=== PATIENT | male | born 1945 | race Caucasian/White ===

== ENCOUNTER 2018-03-05 05:47 | Inpatient (IN) ==
[2018-03-05] MEDS ORDERED: ASPIRIN 325 MG TABLET PO ONE (05:57)
[2018-03-05] MEDS ORDERED: MAGNESIUM SULF RIDER 2 GM in PREMIX 1 EACH IV PRN (05:57)
[2018-03-05] MEDS ORDERED: DIAZEPAM 5 MG TABLET PO ONE (05:57)
[2018-03-05] MEDS ORDERED: diphenhydrAMINE CAP 25 MG CAPSULE PO ONE (05:57)
[2018-03-05] MEDS ORDERED: POTASSIUM CHLORIDE RIDER 10 MEQ in PREMIX 1 EACH IV PRN (05:57)
[2018-03-05] MEDS ORDERED: DEXTROSE 5% NACL 0.45% 1,000 ML IV SCH (06:00)
[2018-03-05] MEDS ORDERED: DIAZEPAM 5 MG TABLET ONE (06:44)
[2018-03-05] MEDS ORDERED: ASPIRIN 325 MG TABLET ONE (06:45)
[2018-03-05] MEDS ORDERED: diphenhydrAMINE CAP 25 MG CAPSULE ONE (06:45)
[2018-03-05] MEDS ORDERED: HEPARIN/NACL 0.9% 2 UNITS/ML 1,000 ML IV ONE (06:47)
[2018-03-05] MEDS ORDERED: LIDOCAINE 1%/EPI INJ 20 ML VIAL ONE (06:47)
[2018-03-05] MEDS ORDERED: MIDAZOLAM 2 MG/2 ML VIAL ONE (07:18)
[2018-03-05] MEDS ORDERED: NITROGLYCERIN DRIP 50 MG/250 ML BOTTLE IV ONE (07:18)
[2018-03-05] MEDS ORDERED: VERAPAMIL 5 MG/2 ML VIAL ONE (07:19)
[2018-03-05] MEDS ORDERED: fentaNYL 100 MCG/2 ML VIAL ONE (07:19)
[2018-03-05] MEDS ORDERED: ENOXAPARIN 60 MG/0.6 ML SYRINGE ONE (07:36)
[2018-03-05] MEDS ORDERED: ACETAMINOPHEN/diphenhydrAMINE 500-25 MG TABLET PO PRN (08:41)
[2018-03-05] MEDS ORDERED: fentaNYL 100 MCG/2 ML VIAL IV PRN (08:42)
[2018-03-05] MEDS: PANTOPRAZOLE 40 MG TABLET PO SCH (09:29)
[2018-03-05] MEDS: METOPROLOL TARTRATE 25 MG TABLET PO SCH ×2 (09:30→21:32)
[2018-03-05] MEDS: ASPIRIN EC 81 MG TABLET PO SCH ×2 (12:35→21:34)
[2018-03-05] MEDS ORDERED: NON-FORMULARY MEDICATION (Omeprazole [Omeprazole] 20 MG) PO SCH (19:00)
[2018-03-05] MEDS ORDERED: PRAVASTATIN 40 MG TABLET PO SCH (21:00)
[2018-03-05] MEDS: LOSARTAN 25 MG TABLET PO SCH (21:33)
[2018-03-06] MEDS: ASPIRIN EC 81 MG TABLET PO SCH ×2 (08:43→22:00)
[2018-03-06] MEDS: METOPROLOL TARTRATE 25 MG TABLET PO SCH ×2 (08:44→22:02)
[2018-03-06] MEDS: PANTOPRAZOLE 40 MG TABLET PO SCH (10:32)
[2018-03-06] MEDS: LEVOTHYROXINE 125 MCG TABLET PO SCH (10:32)
[2018-03-06] MEDS ORDERED: GLUCAGON 1 MG VIAL IM PRN ×2 (10:36→15:54)
[2018-03-06] MEDS ORDERED: DEXTROSE 50% 25 GM/50 ML VIAL IV PRN (10:36)
[2018-03-06 11:16] LABS: Basophils # 0.1 10*3/uL (0.0-0.2); Basophils % 0.8 % (0.0-0.8); Eosinophils # 0.3 10*3/uL (0.0-0.87); Eosinophils % 3.5 % (0.00-10.9); Hematocrit 43.9 VOL% (42.0-52.0); Immature Granulocytes % 0.6 %; Immature Granulocytes Absolute 0.05 #; Lymphocytes # 2.3 10*3/uL (1.4-4.0); Lymphocytes % 26.4 % (21.2-54.2); Mean Corpuscular HGB Conc 34.2 GM/DL (32-36); Mean Corpuscular Hemoglobin 32 PG (27-34); Mean Corpuscular Volume 92.2 FL (87-102); Mean Platelet Volume 10.8 FL (9.6-12.0); Monocytes # 0.8 10*3/uL (0.11-0.8); Monocytes % 9.3 % (1.7-12.7); Neutrophils # 5.1 10*3/uL (1.4-7.4); Neutrophils % 59.4 % (38.7-73.9); Platelet Count 228 T/CUMM (130-400); Red Blood Count 4.76 MC/CUMM (3.8-5.5); Red Cell Distribution Width 12.4 % (9.3-17.3); White Blood Count 8.6 T/CUMM (4-12)
[2018-03-06 11:46] LABS: Albumin 3.6 G/DL (3.4-5.0); Bilirubin,Total 0.8 MG/DL (0.2-1.0); Calcium 8.9 MG/DL (8.5-10.1); Potassium 4.2 MMOL/L (3.5-5.1); Total Protein 7.5 G/DL (6.4-8.3)
[2018-03-06] MEDS: SODIUM CHLORIDE 0.9% 1,000 ML IV SCH (12:42)
[2018-03-06] MEDS: CHLORHEXIDINE 0.12% ORAL RINSE 60 ML BOTTLE SWISH/SPIT SCH ×2 (12:57→22:14)
[2018-03-06 14:30] LABS: ABG Base Excess -0.5 MMOL/L (-2.5-2.5); ABG Oxygen Saturation 95.3 % (95-100); ABG PCO2 38.3 MM HG (35-48); ABG PH 7.404 (7.35-7.45); ABG PO2 77.9 MM HG (80-95); ABG TCO2 20.4 MMOL/L (23-27)
[2018-03-06] MEDS ORDERED: diphenhydrAMINE CAP 25 MG CAPSULE PO PRN (15:52)
[2018-03-06] MEDS ORDERED: DEXTROSE 50% 25 GM/50 ML SYRINGE IV PRN (15:54)
[2018-03-06] MEDS: CHLORHEXIDINE 4% SOLN 118 ML BOTTLE TOP SCH ×2 (16:01→22:15)
[2018-03-06] MEDS: INSULIN REGULAR 100 UNIT/ML SUBCUT SCH ×2 (16:36→22:14)
[2018-03-06] MEDS ORDERED: EZETIMIBE 10 MG TABLET PO SCH (21:00)
[2018-03-06] MEDS: LOSARTAN 25 MG TABLET PO SCH (22:00)
[2018-03-07] MEDS ORDERED: PAPAVERINE 60 MG/2 ML VIAL ONE (04:46)
[2018-03-07] MEDS ORDERED: VANCOMYCIN 1,000 MG VIAL ONE (04:46)
[2018-03-07 05:22] LABS: Basophils # 0.1 10*3/uL (0.0-0.2); Basophils % 0.7 % (0.0-0.8); Eosinophils # 0.4 10*3/uL (0.0-0.87); Eosinophils % 4.2 % (0.00-10.9); Hemoglobin 14.8 GM/DL (14.0-18.0); Immature Granulocytes % 0.6 %; Immature Granulocytes Absolute 0.06 #; Lymphocytes # 2.9 10*3/uL (1.4-4.0); Lymphocytes % 29.1 % (21.2-54.2); Mean Corpuscular HGB Conc 33.6 GM/DL (32-36); Mean Corpuscular Hemoglobin 31 PG (27-34); Mean Corpuscular Volume 92.2 FL (87-102); Mean Platelet Volume 10.8 FL (9.6-12.0); Monocytes # 0.9 10*3/uL (0.11-0.8); Monocytes % 9.3 % (1.7-12.7); Neutrophils # 5.6 10*3/uL (1.4-7.4); Neutrophils % 56.1 % (38.7-73.9); Platelet Count 229 T/CUMM (130-400); Red Blood Count 4.77 MC/CUMM (3.8-5.5); Red Cell Distribution Width 12.4 % (9.3-17.3)
[2018-03-07] MEDS ORDERED: MIDAZOLAM 10 MG/2 ML VIAL ONE ×2 (05:59)
[2018-03-07] MEDS ORDERED: SUFentanil 250 MCG/5 ML AMP ONE (05:59)
[2018-03-07] MEDS ORDERED: DIAZEPAM 5 MG TABLET PO SCH (06:00)
[2018-03-07 06:01] LABS: Calcium 8.8 MG/DL (8.5-10.1); Osmolality,Calculated 281.5 MOS/KG (273-304); Potassium 4.1 MMOL/L (3.5-5.1)
[2018-03-07] MEDS: LEVOTHYROXINE 125 MCG TABLET PO SCH (06:36)
[2018-03-07] MEDS ORDERED: HEPARIN/NACL 0.9% 2 UNITS/ML 500 ML IV ONE (06:39)
[2018-03-07] MEDS ORDERED: PHENYLEPHRINE 10 MG/1 ML VIAL IV ONE ×2 (06:39→15:39)
[2018-03-07] MEDS ORDERED: NITROGLYCERIN DRIP 50 MG/250 ML BOTTLE IV ONE ×2 (06:39→15:39)
[2018-03-07] MEDS ORDERED: CEFUROXIME INJ 1,500 MG in SYRINGE 1 EACH IV ONE (09:00)
[2018-03-07] MEDS ORDERED: DIAZEPAM 5 MG TABLET PO ONE (09:51)
[2018-03-07] MEDS: INSULIN REGULAR 100 UNIT/ML SUBCUT SCH ×2 (10:00→14:48)
[2018-03-07] MEDS: CHLORHEXIDINE 4% SOLN 118 ML BOTTLE TOP SCH (10:12)
[2018-03-07] MEDS: CHLORHEXIDINE 0.12% ORAL RINSE 60 ML BOTTLE SWISH/SPIT SCH (10:12)
[2018-03-07] MEDS: ASPIRIN EC 81 MG TABLET PO SCH (10:12)
[2018-03-07] MEDS: SODIUM CHLORIDE 0.9% 1,000 ML IV SCH ×2 (10:13→14:48)
[2018-03-07] MEDS: PANTOPRAZOLE 40 MG TABLET PO SCH (10:13)
[2018-03-07] MEDS: METOPROLOL TARTRATE 25 MG TABLET PO SCH (10:13)
[2018-03-07 12:02] LABS: ABG Base Excess -0.4 MMOL/L (-2.5-2.5); ABG HCO3 24.1 MMOL/L (20-26); ABG Oxygen Saturation 99.8 % (95-100); ABG PCO2 42.6 MM HG (35-48); ABG PH 7.376 (7.35-7.45); ABG TCO2 21.3 MMOL/L (23-27); Glucose Heart Surgery 114 MG/DL (74-106); Hematocrit Heart Surgery 45.6 PERCENT (42-52); Hemoglobin Heart Surgery 14.9 G/DL (14.0-18.0); Ionized Calcium Arterial 1.17 MMOL/L (1.21-1.46); PCO2 Patient Temp Arterial 42.6 MMHG; PH Patient Temp Arterial 7.376; Patient Temperature 37 CELCIUS; Potassium Heart/CVR 4.1 MMOL/L (3.5-5.1); Sodium Heart/CVR 138 MMOL/L (135-145)
[2018-03-07 12:52] LABS: Apearance,Urine CLEAR (Clear); Bilirubin,Urine Negative (Negative); Blood, Urine Moderate mg/dL (Negative); Glucose,Urine (UA) Negative (Negative); Ketones,Urine Negative (Negative); Nitrite,Urine Negative (Negative); Protein,Urine Negative; RBC,Urine 20 /HPF (0-4); Urine Color Yellow (Yellow); Urine Specific Gravity 1.014 (1.001-1.035); Urine Urobilinogen < 2.0 EU/DL (0.2-1.0); WBC,Urine <1 /HPF (0-6)
[2018-03-07 13:31] LABS: Hematocrit Heart Surgery 28.2 PERCENT (42-52); Hemoglobin Heart Surgery 9.1 G/DL (14.0-18.0); PCO2 Patient Temp Venous 34.3 MM HG; PH Patient Temp Venous 7.442; PO2 Patient Temp Venous 36.9 MM HG; VBG Base Excess -0.3 MEQ/L (0-4); VBG HCO3 23.9 MEQ/L (24-28); VBG Oxygen Saturation 78.8 %; VBG PCO2 37.8 MMHG (41-51); VBG PH 7.413; VBG PO2 42.4 MMHG (17-40)
[2018-03-07] MEDS ORDERED: ALBUMIN 5% 12.5 GM/250 ML VIAL IV ONE ×2 (13:38→18:11)
[2018-03-07] MEDS ORDERED: SODIUM BICARBONATE 50 MEQ/50 ML SYRINGE IV ONE ×2 (13:38→14:48)
[2018-03-07] MEDS ORDERED: PHENYLEPHRINE DRIP 40 MG/250 ML PREMIX IV ONE (13:38)
[2018-03-07] MEDS ORDERED: CALCIUM CHLORIDE 1,000 MG/10 ML SYRINGE IV ONE (13:38)
[2018-03-07] MEDS ORDERED: POTASSIUM CHLORIDE RIDER 100 ML IV ONE (13:39)
[2018-03-07 13:58] LABS: Hematocrit Heart Surgery 30.5 PERCENT (42-52); Hemoglobin Heart Surgery 9.9 G/DL (14.0-18.0); PCO2 Patient Temp Venous 30.6 MM HG; PH Patient Temp Venous 7.456; PO2 Patient Temp Venous 34.6 MM HG; VBG Base Excess -1.6 MEQ/L (0-4); VBG HCO3 22.7 MEQ/L (24-28); VBG Oxygen Saturation 75.4 %; VBG PCO2 33.7 MMHG (41-51); VBG PH 7.427; VBG PO2 39.8 MMHG (17-40)
[2018-03-07 13:59] LABS: Potassium Heart/CVR 6.1 MMOL/L (3.5-5.1)
[2018-03-07] MEDS ORDERED: DEXTROSE 5% KCL 20 MEQ 20 MEQ/1,000 ML BAG IV ONE (14:48)
[2018-03-07] MEDS ORDERED: PROTAMINE SULFATE 250 MG/25 ML VIAL IV ONE (14:48)
[2018-03-07] MEDS ORDERED: ALBUMIN 25% 25 GM/100 ML VIAL IV ONE (14:48)
[2018-03-07] MEDS ORDERED: HEPARIN 10,000 UNIT/10 ML VIAL ONE (14:48)
[2018-03-07] MEDS ORDERED: MANNITOL 12.5 GM/50 ML VIAL IV ONE (14:48)
[2018-03-07] MEDS ORDERED: MAGNESIUM SULFATE 10 GM/20 ML VIAL IV ONE (14:48)
[2018-03-07] MEDS ORDERED: methylPREDNISolone SOD SUC 1,000 MG/8 ML VIAL ONE (14:48)
[2018-03-07] MEDS ORDERED: FUROSEMIDE 20 MG/2 ML VIAL ONE (14:49)
[2018-03-07 14:54] LABS: ABG Base Excess -2.9 MMOL/L (-2.5-2.5); ABG Oxygen Saturation 99.3 % (95-100); ABG PCO2 38.1 MM HG (35-48); ABG TCO2 19.7 MMOL/L (23-27); Glucose Heart Surgery 263 MG/DL (74-106); Hemoglobin Heart Surgery 11.3 G/DL (14.0-18.0); Ionized Calcium Arterial 1.21 MMOL/L (1.21-1.46); PCO2 Patient Temp Arterial 38.1 MMHG; Patient Temperature 37 CELCIUS; Potassium Heart/CVR 4.1 MMOL/L (3.5-5.1); Sodium Heart/CVR 133 MMOL/L (135-145)
[2018-03-07] MEDS ORDERED: CALCIUM CHLORIDE 1,000 MG/10 ML VIAL IV ONE (15:38)
[2018-03-07] MEDS ORDERED: SEVOFLURANE 1 UNIT/15 MINUTE INH ONE (15:38)
[2018-03-07] MEDS ORDERED: LACTATED RINGERS 2,000 ML IV ONE (15:39)
[2018-03-07] MEDS ORDERED: SODIUM CHLORIDE 0.9% 1,000 ML IV ONE (15:39)
[2018-03-07] MEDS ORDERED: AMINOCAPROIC ACID 5,000 MG/20 ML VIAL IV ONE (15:39)
[2018-03-07] MEDS ORDERED: SODIUM CHLORIDE 0.9% 500 ML IV ONE (15:39)
[2018-03-07] MEDS ORDERED: VECURONIUM 10 MG VIAL IV ONE (15:39)
[2018-03-07] MEDS ORDERED: PHENYLEPHRINE 1 MG/10 ML SYRINGE IV ONE (15:39)
[2018-03-07] MEDS ORDERED: ETOMIDATE 40 MG/20 ML VIAL IV ONE (15:39)
[2018-03-07] MEDS ORDERED: POTASSIUM CHLORIDE RIDER 10 MEQ in PREMIX 1 EACH IV PRN (15:42)
[2018-03-07] MEDS ORDERED: MORPHINE 4 MG/1 ML VIAL IV PRN (15:42)
[2018-03-07] MEDS ORDERED: MIDAZOLAM 2 MG/2 ML VIAL IV PRN (15:42)
[2018-03-07] MEDS ORDERED: MAGNESIUM SULF RIDER 4 GM in PREMIX 1 EACH IV PRN (15:42)
[2018-03-07] MEDS ORDERED: NITROPRUSSIDE 100 MG in DEXTROSE 5% 250 ML IV PRN (15:42)
[2018-03-07] MEDS ORDERED: CALCIUM CHLORIDE 1,000 MG/10 ML SYRINGE IV PRN (15:42)
[2018-03-07] MEDS ORDERED: MIDAZOLAM 10 MG/2 ML VIAL IV PRN (15:42)
[2018-03-07] MEDS ORDERED: MAGNESIUM SULF RIDER 2 GM in PREMIX 1 EACH IV PRN (15:42)
[2018-03-07] MEDS ORDERED: ONDANSETRON 4 MG/2 ML VIAL IV PRN (15:42)
[2018-03-07] MEDS ORDERED: INSULIN REGULAR 100 UNIT/ML IV PRN (15:42)
[2018-03-07] MEDS ORDERED: VECURONIUM 10 MG VIAL IV PRN ×2 (15:42)
[2018-03-07] MEDS ORDERED: MORPHINE 10 MG/1 ML VIAL IV PRN (15:42)
[2018-03-07] MEDS ORDERED: DEXTROSE 50% 25 GM/50 ML SYRINGE IV PRN ×2 (15:42)
[2018-03-07] MEDS ORDERED: ACETAMINOPHEN 650 MG SUPP RECTAL PRN (15:42)
[2018-03-07] MEDS ORDERED: INSULIN REGULAR 100 UNIT/ML IV ONE (15:42)
[2018-03-07] MEDS ORDERED: PHENYLEPHRINE DRIP 40 MG/250 ML PREMIX IV PRN (15:42)
[2018-03-07] MEDS ORDERED: SODIUM CHLORIDE 0.45% 1,000 ML IV SCH ×2 (16:00)
[2018-03-07] MEDS ORDERED: INSULIN REGULAR DRIP 100 ML IV SCH (16:00)
[2018-03-07 16:08] LABS: Basophils % 0.2 % (0.0-0.8); Eosinophils # 0.1 10*3/uL (0.0-0.87); Eosinophils % 0.9 % (0.00-10.9); Hemoglobin 11.8 GM/DL (14.0-18.0); Immature Granulocytes % 0.9 %; Lymphocytes # 1.2 10*3/uL (1.4-4.0); Lymphocytes % 10.9 % (21.2-54.2); Mean Corpuscular HGB Conc 33.7 GM/DL (32-36); Mean Corpuscular Hemoglobin 32 PG (27-34); Mean Corpuscular Volume 93.8 FL (87-102); Mean Platelet Volume 10.7 FL (9.6-12.0); Monocytes # 0.8 10*3/uL (0.11-0.8); Monocytes % 7.4 % (1.7-12.7); Neutrophils # 8.7 10*3/uL (1.4-7.4); Neutrophils % 79.7 % (38.7-73.9); Platelet Count 174 T/CUMM (130-400); Red Blood Count 3.73 MC/CUMM (3.8-5.5); Red Cell Distribution Width 12.5 % (9.3-17.3); White Blood Count 10.9 T/CUMM (4-12)
[2018-03-07 16:13] LABS: ABG Base Excess -0.8 MMOL/L (-2.5-2.5); ABG Oxygen Saturation 96.8 % (95-100); ABG PCO2 45.8 MM HG (35-48); ABG PH 7.355 (7.35-7.45); ABG PO2 100.5 MM HG (80-95); ABG TCO2 26.4 MMOL/L (23-27); Glucose Heart Surgery 211 MG/DL (74-106); Hemoglobin Heart Surgery 12.9 G/DL (14.0-18.0); Potassium Heart/CVR 3.8 MMOL/L (3.5-5.1)
[2018-03-07 16:18] LABS: INR 1.1; PT Patient Result 11.6 SECS; Partial Thromboplastin Time 28.5 SECS (0-40)
[2018-03-07] MEDS: ALBUMIN 5% 12.5 GM in PREMIX 1 EACH IV PRN ×6 (16:18→20:25)
[2018-03-07] MEDS: POTASSIUM CHLORIDE RIDER 20 MEQ in PREMIX 1 EACH IV PRN ×2 (16:19→18:11)
[2018-03-07 16:25] LABS: CKMB % 5.7 %
[2018-03-07 16:31] LABS: Troponin I 2.11 NG/ML (0.00-0.045)
[2018-03-07] MEDS ORDERED: PROTAMINE SULFATE 50 MG/5 ML VIAL IV ONE (16:31)
[2018-03-07 16:33] LABS: Albumin 3.4 G/DL (3.4-5.0); Bilirubin,Total 1.3 MG/DL (0.2-1.0); Calcium 8.2 MG/DL (8.5-10.1); Osmolality,Calculated 285.5 MOS/KG (273-304); Potassium 3.8 MMOL/L (3.5-5.1); Total Protein 6.1 G/DL (6.4-8.3)
[2018-03-07] MEDS: KETOROLAC 30 MG/1 ML VIAL IV SCH ×2 (16:44→21:09)
[2018-03-07] MEDS: LACTATED RINGERS 250 ML IV PRN ×3 (17:23→23:44)
[2018-03-07 17:59] LABS: ABG Base Excess -1.5 MMOL/L (-2.5-2.5); ABG HCO3 24.6 MMOL/L (20-26); ABG Oxygen Saturation 96.7 % (95-100); ABG PCO2 46.9 MM HG (35-48); ABG PH 7.338 (7.35-7.45); ABG PO2 103.4 MM HG (80-95); ABG TCO2 26.1 MMOL/L (23-27); Glucose Heart Surgery 137 MG/DL (74-106); Hemoglobin Heart Surgery 12.4 G/DL (14.0-18.0)
[2018-03-07 19:09] LABS: ABG Base Excess -1.1 MMOL/L (-2.5-2.5); ABG HCO3 23.5 MMOL/L (20-26); ABG Oxygen Saturation 98.6 % (95-100); ABG PCO2 41.5 MM HG (35-48); ABG PH 7.372 (7.35-7.45); ABG TCO2 21.6 MMOL/L (23-27); Glucose Heart Surgery 121 MG/DL (74-106); Hematocrit Heart Surgery 35.5 PERCENT (42-52); Hemoglobin Heart Surgery 11.5 G/DL (14.0-18.0); Potassium Heart/CVR 4.3 MMOL/L (3.5-5.1)
[2018-03-07] MEDS ORDERED: CHLORHEXIDINE 0.12% ORAL RINSE 60 ML BOTTLE SWISH/SPIT SCH (21:00)
[2018-03-07 21:47] LABS: ABG Base Excess -1.6 MMOL/L (-2.5-2.5); ABG Oxygen Saturation 97.1 % (95-100); ABG PCO2 38.4 MM HG (35-48); ABG PH 7.387 (7.35-7.45); ABG PO2 91.1 MM HG (80-95); ABG TCO2 20.8 MMOL/L (23-27); Glucose Heart Surgery 168 MG/DL (74-106); Hematocrit Heart Surgery 33.2 PERCENT (42-52); Hemoglobin Heart Surgery 10.7 G/DL (14.0-18.0); Potassium Heart/CVR 4.5 MMOL/L (3.5-5.1)
[2018-03-07 22:53] LABS: ABG Base Excess -1.8 MMOL/L (-2.5-2.5); ABG HCO3 22.9 MMOL/L (20-26); ABG PCO2 42.6 MM HG (35-48); ABG PH 7.354 (7.35-7.45); ABG PO2 95.9 MM HG (80-95); ABG TCO2 21.4 MMOL/L (23-27); Glucose Heart Surgery 172 MG/DL (74-106); Hematocrit Heart Surgery 34.2 PERCENT (42-52); Hemoglobin Heart Surgery 11.1 G/DL (14.0-18.0); Potassium Heart/CVR 4.1 MMOL/L (3.5-5.1)
[2018-03-07 23:31] LABS: ABG Base Excess -2.9 MMOL/L (-2.5-2.5); ABG Oxygen Saturation 96.4 % (95-100); ABG PCO2 42.7 MM HG (35-48); ABG PH 7.337 (7.35-7.45); ABG TCO2 20.6 MMOL/L (23-27); Glucose Heart Surgery 181 MG/DL (74-106); Hematocrit Heart Surgery 34.2 PERCENT (42-52); Hemoglobin Heart Surgery 11.1 G/DL (14.0-18.0); Potassium Heart/CVR 3.8 MMOL/L (3.5-5.1)
[2018-03-07] MEDS ORDERED: CEFUROXIME INJ 1,500 MG in SYRINGE 1 EACH IV SCH (23:33)
[2018-03-07 23:42] LABS: Troponin I 3.96 NG/ML (0.00-0.045)
[2018-03-08 03:47] LABS: ABG Base Excess -1.6 MMOL/L (-2.5-2.5); ABG HCO3 23.1 MMOL/L (20-26); ABG Oxygen Saturation 97.3 % (95-100); ABG PCO2 40.7 MM HG (35-48); ABG PH 7.371 (7.35-7.45); ABG TCO2 21.3 MMOL/L (23-27); Glucose Heart Surgery 116 MG/DL (74-106); Hematocrit Heart Surgery 32.8 PERCENT (42-52); Hemoglobin Heart Surgery 10.6 G/DL (14.0-18.0)
[2018-03-08 04:06] LABS: Basophils % 0.1 % (0.0-0.8); Hematocrit 31.3 VOL% (42.0-52.0); Hemoglobin 10.2 GM/DL (14.0-18.0); Immature Granulocytes % 0.5 %; Immature Granulocytes Absolute 0.08 #; Lymphocytes # 0.7 10*3/uL (1.4-4.0); Lymphocytes % 5.1 % (21.2-54.2); Mean Corpuscular HGB Conc 32.6 GM/DL (32-36); Mean Corpuscular Hemoglobin 31 PG (27-34); Mean Corpuscular Volume 95.4 FL (87-102); Monocytes # 0.6 10*3/uL (0.11-0.8); Monocytes % 3.8 % (1.7-12.7); Neutrophils # 13.3 10*3/uL (1.4-7.4); Neutrophils % 90.5 % (38.7-73.9); Platelet Count 179 T/CUMM (130-400); Red Blood Count 3.28 MC/CUMM (3.8-5.5); Red Cell Distribution Width 12.5 % (9.3-17.3); White Blood Count 14.6 T/CUMM (4-12)
[2018-03-08 04:15] LABS: Albumin 4.2 G/DL (3.4-5.0); Bilirubin,Direct 0.29 MG/DL (0.0-0.20); Bilirubin,Total 1.3 MG/DL (0.2-1.0); Calcium 8.4 MG/DL (8.5-10.1); Osmolality,Calculated 286.1 MOS/KG (273-304); Total Protein 6.7 G/DL (6.4-8.3)
[2018-03-08] MEDS: KETOROLAC 30 MG/1 ML VIAL IV SCH ×4 (05:09→22:13)
[2018-03-08 06:16] LABS: CKMB % 6.2 %
[2018-03-08 06:20] LABS: Troponin I 4.78 NG/ML (0.00-0.045)
[2018-03-08] MEDS ORDERED: DEXTROSE 50% 25 GM/50 ML SYRINGE IV PRN (07:12)
[2018-03-08] MEDS ORDERED: MAGNESIUM HYDROXIDE SUSP 30 ML UDCUP PO PRN (07:12)
[2018-03-08] MEDS ORDERED: POTASSIUM CHLORIDE 20 MEQ TABLET PO PRN (07:12)
[2018-03-08] MEDS ORDERED: ALUMINUM/MAGNES/SIMETH MAX STR 30 ML UDCUP PO PRN (07:12)
[2018-03-08] MEDS ORDERED: MAGNESIUM SULF RIDER 4 GM in PREMIX 1 EACH IV PRN (07:12)
[2018-03-08] MEDS ORDERED: GLUCAGON 1 MG VIAL IM PRN ×2 (07:12)
[2018-03-08] MEDS ORDERED: DEXTROSE 50% 25 GM/50 ML VIAL IV PRN (07:12)
[2018-03-08] MEDS ORDERED: oxyCODONE/ACETAMINOPHEN 5-325 MG TABLET PO PRN (07:12)
[2018-03-08] MEDS ORDERED: ZALEPLON 5 MG CAPSULE PO PRN (07:12)
[2018-03-08] MEDS ORDERED: ONDANSETRON 4 MG/2 ML VIAL IV PRN (07:12)
[2018-03-08] MEDS ORDERED: MAGNESIUM SULF RIDER 2 GM in PREMIX 1 EACH IV PRN (07:12)
[2018-03-08] MEDS: SODIUM CHLOR 0.45% KCL 20 MEQ 20 MEQ/1,000 ML BAG IV SCH (07:43)
[2018-03-08] MEDS: PANTOPRAZOLE 40 MG TABLET PO SCH (08:36)
[2018-03-08] MEDS: DOCUSATE SODIUM 100 MG CAPSULE PO SCH (08:36)
[2018-03-08] MEDS: METOPROLOL TARTRATE 25 MG TABLET PO SCH ×2 (08:42→21:54)
[2018-03-08] MEDS ORDERED: ASPIRIN EC 81 MG TABLET PO SCH (09:00)
[2018-03-08] MEDS: FERROUS SULFATE 325 MG TABLET PO SCH (09:09)
[2018-03-08] MEDS: CHLORHEXIDINE 0.12% ORAL RINSE 60 ML BOTTLE SWISH/SPIT SCH ×2 (09:09→21:54)
[2018-03-08] MEDS ORDERED: INSULIN REGULAR 100 UNIT/ML SUBCUT SCH (10:00)
[2018-03-08] MEDS: CEFUROXIME INJ 1,500 MG in SYRINGE 1 EACH IV SCH ×2 (11:42→22:54)
[2018-03-08] MEDS: INSULIN LISPRO 100 UNIT/ML SUBCUT SCH ×4 (12:26→23:58)
[2018-03-08] MEDS ORDERED: PRAVASTATIN 20 MG TABLET PO SCH (21:00)
[2018-03-08] MEDS: EZETIMIBE 10 MG TABLET PO SCH (21:53)
[2018-03-08] MEDS: diphenhydrAMINE CAP 50 MG CAPSULE PO PRN (21:53)
[2018-03-08] MEDS: ACETAMINOPHEN 325 MG TABLET PO PRN (21:53)
[2018-03-08] MEDS: LOSARTAN 25 MG TABLET PO SCH (21:54)
[2018-03-09] MEDS: INSULIN LISPRO 100 UNIT/ML SUBCUT SCH ×5 (04:43→21:06)
[2018-03-09 05:26] LABS: Albumin 3.2 G/DL (3.4-5.0); Bilirubin,Direct 0.21 MG/DL (0.0-0.20); Bilirubin,Total 1.2 MG/DL (0.2-1.0); CKMB % 3.6 %; Calcium 7.6 MG/DL (8.5-10.1); Osmolality,Calculated 288.4 MOS/KG (273-304); Potassium 4.4 MMOL/L (3.5-5.1); Total Protein 5.9 G/DL (6.4-8.3)
[2018-03-09 05:29] LABS: Troponin I 5.84 NG/ML (0.00-0.045)
[2018-03-09 05:40] LABS: Basophils % 0.2 % (0.0-0.8); Eosinophils % 0.1 % (0.00-10.9); Hematocrit 27.9 VOL% (42.0-52.0); Hemoglobin 9.2 GM/DL (14.0-18.0); Immature Granulocytes Absolute 0.15 #; Lymphocytes # 1.5 10*3/uL (1.4-4.0); Lymphocytes % 10.2 % (21.2-54.2); Mean Corpuscular Hemoglobin 32 PG (27-34); Mean Corpuscular Volume 95.9 FL (87-102); Mean Platelet Volume 11.6 FL (9.6-12.0); Monocytes # 1.3 10*3/uL (0.11-0.8); Neutrophils # 11.8 10*3/uL (1.4-7.4); Neutrophils % 79.5 % (38.7-73.9); Platelet Count 153 T/CUMM (130-400); Red Blood Count 2.91 MC/CUMM (3.8-5.5); Red Cell Distribution Width 12.7 % (9.3-17.3); White Blood Count 14.8 T/CUMM (4-12)
[2018-03-09] MEDS: KETOROLAC 30 MG/1 ML VIAL IV SCH ×4 (05:41→22:01)
[2018-03-09] MEDS ORDERED: FUROSEMIDE 40 MG/4 ML VIAL IV ONE (06:00)
[2018-03-09] MEDS ORDERED: LEVOTHYROXINE 125 MCG TABLET PO SCH ×2 (06:30→14:30)
[2018-03-09] MEDS: SODIUM CHLOR 0.45% KCL 20 MEQ 20 MEQ/1,000 ML BAG IV SCH (06:38)
[2018-03-09] MEDS: DOCUSATE SODIUM 100 MG CAPSULE PO SCH (08:57)
[2018-03-09] MEDS: FERROUS SULFATE 325 MG TABLET PO SCH (08:57)
[2018-03-09] MEDS: ASPIRIN EC 81 MG TABLET PO SCH (08:57)
[2018-03-09] MEDS: CHLORHEXIDINE 0.12% ORAL RINSE 60 ML BOTTLE SWISH/SPIT SCH ×2 (08:58→21:05)
[2018-03-09] MEDS: PANTOPRAZOLE 40 MG TABLET PO SCH (08:58)
[2018-03-09] MEDS: METOPROLOL TARTRATE 25 MG TABLET PO SCH ×2 (08:59→21:05)
[2018-03-09] MEDS: SODIUM CHLORIDE 0.45% 1,000 ML IV SCH ×2 (15:14→21:05)
[2018-03-09] MEDS: diphenhydrAMINE CAP 50 MG CAPSULE PO PRN (21:05)
[2018-03-09] MEDS: EZETIMIBE 10 MG TABLET PO SCH (21:05)
[2018-03-09] MEDS: LOSARTAN 25 MG TABLET PO SCH (21:05)
[2018-03-09] MEDS: ACETAMINOPHEN 325 MG TABLET PO PRN (21:05)
[2018-03-10] MEDS: INSULIN LISPRO 100 UNIT/ML SUBCUT SCH ×6 (00:32→20:19)
[2018-03-10 04:41] LABS: Basophils % 0.3 % (0.0-0.8); Eosinophils # 0.3 10*3/uL (0.0-0.87); Eosinophils % 2.5 % (0.00-10.9); Hematocrit 28.8 VOL% (42.0-52.0); Hemoglobin 9.3 GM/DL (14.0-18.0); Immature Granulocytes % 0.8 %; Immature Granulocytes Absolute 0.09 #; Lymphocytes # 2.6 10*3/uL (1.4-4.0); Lymphocytes % 23.5 % (21.2-54.2); Mean Corpuscular HGB Conc 32.3 GM/DL (32-36); Mean Corpuscular Hemoglobin 31 PG (27-34); Mean Corpuscular Volume 96.6 FL (87-102); Mean Platelet Volume 11.4 FL (9.6-12.0); Monocytes # 1.3 10*3/uL (0.11-0.8); Monocytes % 11.7 % (1.7-12.7); Neutrophils # 6.8 10*3/uL (1.4-7.4); Neutrophils % 61.2 % (38.7-73.9); Platelet Count 152 T/CUMM (130-400); Red Blood Count 2.98 MC/CUMM (3.8-5.5); Red Cell Distribution Width 12.7 % (9.3-17.3); White Blood Count 11.1 T/CUMM (4-12)
[2018-03-10] MEDS: KETOROLAC 30 MG/1 ML VIAL IV SCH ×4 (04:43→22:55)
[2018-03-10 04:58] LABS: Bilirubin,Direct 0.24 MG/DL (0.0-0.20); Bilirubin,Indirect 0.9 MG/DL (0.0-1.0); Bilirubin,Total 1.1 MG/DL (0.2-1.0); CKMB % 2.2 %; Calcium 7.5 MG/DL (8.5-10.1); Osmolality,Calculated 286.3 MOS/KG (273-304); Potassium 4.2 MMOL/L (3.5-5.1); Total Protein 5.9 G/DL (6.4-8.3)
[2018-03-10 05:01] LABS: Troponin I 5.09 NG/ML (0.00-0.045)
[2018-03-10] MEDS: LEVOTHYROXINE 125 MCG TABLET PO SCH (05:47)
[2018-03-10] MEDS: FERROUS SULFATE 325 MG TABLET PO SCH (08:01)
[2018-03-10] MEDS: PANTOPRAZOLE 40 MG TABLET PO SCH (08:01)
[2018-03-10] MEDS: CHLORHEXIDINE 0.12% ORAL RINSE 60 ML BOTTLE SWISH/SPIT SCH ×2 (08:01→20:20)
[2018-03-10] MEDS: ASPIRIN EC 81 MG TABLET PO SCH (08:01)
[2018-03-10] MEDS: METOPROLOL TARTRATE 25 MG TABLET PO SCH ×2 (08:01→20:19)
[2018-03-10] MEDS: DOCUSATE SODIUM 100 MG CAPSULE PO SCH (08:01)
[2018-03-10] MEDS: LOSARTAN 25 MG TABLET PO SCH (20:19)
[2018-03-10] MEDS: EZETIMIBE 10 MG TABLET PO SCH (20:19)
[2018-03-10] MEDS: diphenhydrAMINE CAP 50 MG CAPSULE PO PRN (20:19)
[2018-03-10] MEDS: ACETAMINOPHEN 325 MG TABLET PO PRN (20:19)
[2018-03-11] MEDS: KETOROLAC 30 MG/1 ML VIAL IV SCH (04:51)
[2018-03-11 05:10] LABS: Basophils # 0.1 10*3/uL (0.0-0.2); Basophils % 0.5 % (0.0-0.8); Eosinophils # 0.5 10*3/uL (0.0-0.87); Eosinophils % 5.5 % (0.00-10.9); Hematocrit 28.8 VOL% (42.0-52.0); Hemoglobin 9.6 GM/DL (14.0-18.0); Immature Granulocytes % 0.6 %; Immature Granulocytes Absolute 0.06 #; Lymphocytes # 2.4 10*3/uL (1.4-4.0); Lymphocytes % 24.7 % (21.2-54.2); Mean Corpuscular HGB Conc 33.3 GM/DL (32-36); Mean Corpuscular Hemoglobin 32 PG (27-34); Mean Corpuscular Volume 94.4 FL (87-102); Mean Platelet Volume 11.6 FL (9.6-12.0); Monocytes # 1.1 10*3/uL (0.11-0.8); Monocytes % 11.1 % (1.7-12.7); Neutrophils # 5.7 10*3/uL (1.4-7.4); Neutrophils % 57.6 % (38.7-73.9); Platelet Count 176 T/CUMM (130-400); Red Blood Count 3.05 MC/CUMM (3.8-5.5); Red Cell Distribution Width 12.4 % (9.3-17.3); White Blood Count 9.8 T/CUMM (4-12)
[2018-03-11] MEDS: LEVOTHYROXINE 125 MCG TABLET PO SCH (05:35)
[2018-03-11 06:39] LABS: Calcium 7.8 MG/DL (8.5-10.1); Osmolality,Calculated 281.4 MOS/KG (273-304); Potassium 4.1 MMOL/L (3.5-5.1)
[2018-03-11] MEDS: INSULIN LISPRO 100 UNIT/ML SUBCUT SCH ×4 (07:12→21:20)
[2018-03-11] MEDS: PANTOPRAZOLE 40 MG TABLET PO SCH (08:10)
[2018-03-11] MEDS: ASPIRIN EC 81 MG TABLET PO SCH (08:10)
[2018-03-11] MEDS: DOCUSATE SODIUM 100 MG CAPSULE PO SCH (08:10)
[2018-03-11] MEDS: FERROUS SULFATE 325 MG TABLET PO SCH (08:10)
[2018-03-11] MEDS: METOPROLOL TARTRATE 25 MG TABLET PO SCH ×2 (08:10→20:28)
[2018-03-11] MEDS: CHLORHEXIDINE 0.12% ORAL RINSE 60 ML BOTTLE SWISH/SPIT SCH ×2 (08:11→21:20)
[2018-03-11] MEDS: LOSARTAN 25 MG TABLET PO SCH (20:26)
[2018-03-11] MEDS: EZETIMIBE 10 MG TABLET PO SCH (20:26)
[2018-03-11] MEDS: diphenhydrAMINE CAP 50 MG CAPSULE PO PRN (20:27)
[2018-03-11] MEDS: ACETAMINOPHEN 325 MG TABLET PO PRN (20:28)
[2018-03-12 05:35] LABS: Basophils % 0.4 % (0.0-0.8); Eosinophils # 0.6 10*3/uL (0.0-0.87); Eosinophils % 5.8 % (0.00-10.9); Hematocrit 31.2 VOL% (42.0-52.0); Hemoglobin 10.3 GM/DL (14.0-18.0); Immature Granulocytes % 0.7 %; Immature Granulocytes Absolute 0.07 #; Lymphocytes # 2.6 10*3/uL (1.4-4.0); Lymphocytes % 26.5 % (21.2-54.2); Mean Corpuscular Hemoglobin 31 PG (27-34); Mean Platelet Volume 11.6 FL (9.6-12.0); Monocytes % 10.6 % (1.7-12.7); Neutrophils # 5.4 10*3/uL (1.4-7.4); Platelet Count 230 T/CUMM (130-400); Red Blood Count 3.32 MC/CUMM (3.8-5.5); Red Cell Distribution Width 12.4 % (9.3-17.3); White Blood Count 9.7 T/CUMM (4-12)
[2018-03-12] MEDS: LEVOTHYROXINE 125 MCG TABLET PO SCH (05:41)
[2018-03-12 06:17] LABS: Calcium 8.3 MG/DL (8.5-10.1); Osmolality,Calculated 283.1 MOS/KG (273-304)
[2018-03-12 06:28] LABS: Alanine Aminotransferase 38 U/L (16-61); Albumin 3.1 G/DL (3.4-5.0); Alkaline Phosphatase 61 U/L (45-117); Aspartate Amino Transferase 19 U/L (0-37); Bilirubin,Indirect 0.8 MG/DL (0.0-1.0); Blood Urea Nitrogen 18 MG/DL (7-18); Calcium 8.6 MG/DL (8.5-10.1); Glucose 89 MG/DL (74-106); Osmolality,Calculated 281.3 MOS/KG (273-304); Sodium 141 MMOL/L (136-145); Total Protein 6.6 G/DL (6.4-8.3)
[2018-03-12 08:04] VITALS: BP 140/67
[2018-03-12] MEDS: ASPIRIN EC 81 MG TABLET PO SCH (10:40)
[2018-03-12] MEDS: DOCUSATE SODIUM 100 MG CAPSULE PO SCH (10:40)
[2018-03-12] MEDS: METOPROLOL TARTRATE 25 MG TABLET PO SCH (10:41)
[2018-03-12] MEDS: FERROUS SULFATE 325 MG TABLET PO SCH (10:42)
[2018-03-12] MEDS: INSULIN LISPRO 100 UNIT/ML SUBCUT SCH (10:42)
[2018-03-12] MEDS: PANTOPRAZOLE 40 MG TABLET PO SCH (10:43)
[2018-03-12] MEDS: CHLORHEXIDINE 0.12% ORAL RINSE 60 ML BOTTLE SWISH/SPIT SCH (10:43)
== END 2018-03-12 11:39 | disposition home or self-care (01) | DRG 234 ==
LOC: N.CL 05:47 → N.TELEN 10:31 → N.CVR 03-07 11:36 → N.TELES 03-08 10:04
PROVIDERS: ADMIT Internal Medicine Interventional Cardiology; ATTEND Internal Medicine Interventional Cardiology
PROC: CLCCHCL (ICD-10-PCS; 2018-03-05 07:45)

== ENCOUNTER 2019-05-26 11:12 | Observation (INO) ==
[2019-05-26] MEDS ORDERED: SODIUM CHLORIDE 0.9% 500 ML IV STA (11:53)
[2019-05-26 12:05] LABS: Basophils # 0.1 10*3/uL (0.0-0.2); Eosinophils # 0.3 10*3/uL (0.0-0.87); Eosinophils % 3.4 % (0.00-10.9); Hematocrit 44.8 VOL% (42.0-52.0); Hemoglobin 14.4 GM/DL (14.0-18.0); Immature Granulocytes % 0.8 %; Immature Granulocytes Absolute 0.06 #; Lymphocytes # 2.1 10*3/uL (1.4-4.0); Lymphocytes % 27.6 % (21.2-54.2); Mean Corpuscular HGB Conc 32.1 GM/DL (32-36); Mean Corpuscular Volume 91.8 FL (87-102); Mean Platelet Volume 10.4 FL (9.6-12.0); Monocytes % 10.9 % (1.7-12.7); Neutrophils % 56.3 % (38.7-73.9); Platelet Count 276 T/CUMM (130-400); Red Blood Count 4.88 MC/CUMM (3.8-5.5); Red Cell Distribution Width 13.3 % (9.3-17.3); White Blood Count 7.7 T/CUMM (4-12)
[2019-05-26 12:14] LABS: PT Patient Result 10.7 SECS (9.6-12.2)
[2019-05-26 12:19] LABS: Alanine Aminotransferase 46 U/L (16-61); Albumin 4.2 G/DL (3.4-5.0); Alkaline Phosphatase 69 U/L (45-117); Aspartate Amino Transferase 27 U/L (0-37); Blood Urea Nitrogen 21 MG/DL (7-18); Estimated Glom Filtration Rate 71 ML/MIN; Glucose 122 MG/DL (74-106); Osmolality,Calculated 273.1 MOS/KG (273-304); Troponin I < 0.015 NG/ML (0.00-0.045)
[2019-05-26 12:27] LABS: Prolactin 6.3 NG/ML
[2019-05-26 12:33] LABS: Apearance,Urine CLEAR (Clear); Bilirubin,Urine Negative (Negative); Blood, Urine Negative (Negative); Glucose,Urine (UA) Negative (Negative); Ketones,Urine Negative (Negative); Mucus,Urine Occasional /LPF (Occasional); Nitrite,Urine Negative (Negative); Protein,Urine Negative; Squamous Epithelial Cell,Urine Occasional /HPF (0-10); Urine Color Yellow (Yellow); Urine Specific Gravity 1.014 (1.001-1.035); Urine Urobilinogen < 2.0 EU/DL (0.2-1.0); WBC,Urine <1 /HPF (0-6)
[2019-05-26 12:44] LABS: Barbiturates Screen,Urine Negative (Negative); Benzodiazepines Screen,Urine Negative (Negative); Cannabinoid Screen,Urine Negative (Negative); Opiate Screen,Urine Negative (Negative); Phencyclidine Screen,Urine Negative (Negative)
[2019-05-26] MEDS ORDERED: LACTULOSE 20 GM/30 ML UDCUP PO PRN (13:16)
[2019-05-26] MEDS ORDERED: ONDANSETRON 4 MG/2 ML VIAL IV PRN (13:16)
[2019-05-26] MEDS ORDERED: DOCUSATE SODIUM 100 MG CAPSULE PO PRN (13:16)
[2019-05-26] MEDS ORDERED: ACETAMINOPHEN 325 MG TABLET PO PRN (13:16)
[2019-05-26] MEDS ORDERED: BISACODYL 5 MG TABLET PO PRN (13:16)
[2019-05-26 13:56] LABS: Thyroid Stimulating Hormone 2.12 uIU/ml (0.358-3.74)
[2019-05-26] MEDS: SODIUM CHLORIDE 0.9% 1,000 ML IV SCH (16:03)
[2019-05-26] MEDS ORDERED: LOSARTAN 25 MG TABLET PO SCH (19:00)
[2019-05-26] MEDS ORDERED: GLUCAGON 1 MG VIAL IM PRN (19:21)
[2019-05-26] MEDS ORDERED: DEXTROSE 10% 250 ML BAG IV PRN (19:30)
[2019-05-26] MEDS ORDERED: ENOXAPARIN 40 MG/0.4 ML SYRINGE SUBCUT SCH (21:00)
[2019-05-26] MEDS ORDERED: METOPROLOL TARTRATE 25 MG TABLET PO SCH (21:00)
[2019-05-26] MEDS ORDERED: EZETIMIBE 10 MG TABLET PO SCH (21:00)
[2019-05-26] MEDS: INSULIN REGULAR 100 UNIT/ML SUBCUT SCH (21:22)
[2019-05-27 05:09] LABS: Basophils # 0.1 10*3/uL (0.0-0.2); Basophils % 0.9 % (0.0-0.8); Eosinophils # 0.2 10*3/uL (0.0-0.87); Eosinophils % 3.1 % (0.00-10.9); Hematocrit 38.7 VOL% (42.0-52.0); Hemoglobin 12.9 GM/DL (14.0-18.0); Immature Granulocytes % 0.4 %; Immature Granulocytes Absolute 0.03 #; Lymphocytes # 2.8 10*3/uL (1.4-4.0); Lymphocytes % 35.5 % (21.2-54.2); Mean Corpuscular HGB Conc 33.3 GM/DL (32-36); Mean Corpuscular Volume 89.8 FL (87-102); Monocytes % 10.3 % (1.7-12.7); Neutrophils % 49.8 % (38.7-73.9); Platelet Count 233 T/CUMM (130-400); Red Blood Count 4.31 MC/CUMM (3.8-5.5); Red Cell Distribution Width 13.3 % (9.3-17.3); White Blood Count 7.8 T/CUMM (4-12)
[2019-05-27] MEDS: LEVOTHYROXINE 125 MCG TABLET PO SCH ×2 (05:19→10:38)
[2019-05-27] MEDS: SODIUM CHLORIDE 0.9% 1,000 ML IV SCH (05:20)
[2019-05-27 05:34] LABS: Calcium 8.5 MG/DL (8.5-10.1); Risk Ratio 6.03; VLDL CHOLESTEROL 38.8 MG/DL
[2019-05-27] MEDS: INSULIN REGULAR 100 UNIT/ML SUBCUT SCH ×2 (08:26→11:24)
[2019-05-27] MEDS ORDERED: carvediloL 3.125 MG TABLET PO SCH (09:00)
[2019-05-27] MEDS ORDERED: PANTOPRAZOLE 40 MG TABLET PO SCH (09:00)
[2019-05-27] MEDS ORDERED: ASPIRIN EC 81 MG TABLET PO SCH (09:00)
[2019-05-27] MEDS ORDERED: LEVOTHYROXINE 125 MCG TABLET PO SCH (09:00)
[2019-05-27 12:41] VITALS: BP 127/81
== END 2019-05-27 16:18 | disposition home or self-care (01) ==
LOC: N.EDINP 11:12 → N.ED 11:12 → SUATTDRO 13:12 → N.TELES 13:36
PROVIDERS: ADMIT Internal Medicine; ATTEND Family Medicine